=== PATIENT | male | born 1940 | race Caucasian/White ===

== ENCOUNTER 2023-03-03 07:57 | Observation (INO) ==
--- NOTE | 2023-02-04 14:24 | PAT Medication Instructions ---
Medication Instructions Date of Service February 04, 2023 Home Medications Medication Instructions Recorded aspirin 81 mg tablet,delayed 81 mg PO .COMPLEX #30 tabs 07/10/22 release nitroglycerin 0.4 mg sublingual 0.4 mg sublingual Q5M PRN chest 09/25/22 tablet pain #25 tabs multivitamin (Daily Multi-Vitamin tablet) 1 tab PO QAM vitamin B complex (B Complex-Vitamin B12 tablet) 1 tab PO QAM aspirin 81 mg tablet,delayed release 81 mg PO .COMPLEX nitroglycerin 0.4 mg sublingual tablet 0.4 mg sublingual Q5M PRN chest pain atorvastatin 40 mg tablet 40 mg PO QAM metoprolol succinate 25 mg tablet,extended release 24 hr 25 mg PO QAM telmisartan 40 mg tablet 40 mg PO QAM Continue as directed nitroglycerin 0.4 mg sublingual tablet 0.4 mg sublingual Q5M PRN chest pain (if needed) ASK your prescriber and surgeon aspirin 81 mg tablet,delayed release 81 mg PO .COMPLEX DO NOT take the morning of surgery multivitamin (Daily Multi-Vitamin tablet) 1 tab PO QAM vitamin B complex (B Complex-Vitamin B12 tablet) 1 tab PO QAM telmisartan 40 mg tablet 40 mg PO QAM Take morning of surgery With a small sip of water, OTHERWISE NOTHING TO EAT OR DRINK AFTER MIDNIGHT: atorvastatin 40 mg tablet 40 mg PO QAM metoprolol succinate 25 mg tablet,extended release 24 hr 25 mg PO QAM Other Notes If you have any questions please call us at [phone] or [phone] or [phone] or [phone]
--- NOTE | 2023-02-13 12:05 | Anesthesiology Consultation ---
Date of Service February 13, 2023 Assessment & Plan (1) Preoperative cardiovascular examination: Chart Review Chart Review: Acceptable Risk for Surgery (pending cardio ordered stress test ) and Patient seen in Pre Admission Testing - Awaiting cardio ordered stress test (not yet scheduled) -Pt is NOT an Outpatient Joint candidate Per PAT appt on 02/13/23, patient denies any recent travel or large group activities. Pt is vaccinated for Covid. Will leave to surgeon's discretion if preop Covid testing needed. Educated on importance of using Covid precautions one week prior to surgery Last seen by cardio 02/07/23= stable from cardiac standpoint. Able to do usual daily activities including climbing >2 flights of stairs. Despite the presence of presumed new left bundle branch block his exercise tolerance has been stable. BP is well controlled. "As he has a new LBBB further ischemic evaluation is recommended. Patient will be scheduled for a Lexiscan Cardiolite in the near future before his surgery. Provided this nuclear stress test shows no large areas of ischemia or a significant reduction of his LV systolic function -- patient will be an intermediate cardiac risk for his upcoming right reversed TSA. Patient is aware to take his usual dose of Toprol XL 25 mg the morning of surgery with sips of water, and he should hold Telmisartan on the morning of surgery. Additionally, the patient may hold Aspirin for 5-7 days leading up to surgery if required by the surgeon.* Patient seen by PCP 01/29/2023 = seen for preoperative evaluation for scheduled right shoulder replacement. Patient is considered below average risk for serious complications. Average risk for cardiac complication. CAD scheduled to see cardiology for clearance. Above average concern secondary to geriatric outcome recommendations for discharge to nursing or rehab facility, po stoperative delirium, potential new mobility issue. No change of the patient's underlying medications, aspirin can be held 1 week prior to surgery. Teaching & Discussion Pre-Anesthesia Teaching/Discussion Notes: Instructed NPO after midnight before surgery,except medications with 15 cc of water. Medication instructions provided according to the PAT guidelines. History Surgery Operation Date: 02/26/23 12:40 Proposed Procedures p Right Total Shoulder Arthroplasty Reverse - Jono Hoffmann MD Height/Weight Height: 5 ft 6 in Weight: 67.1 kg Allergies Allergy/AdvReac Type Severity Reaction Status Date / Time No Known Drug Allergies Allergy Verified 02/07/23 09:44 Medications Home Medications Medication Instructions Recorded Confirmed Last Taken multivitamin (Daily Multi-Vitamin 1 tab PO QAM 12/25/20 02/07/23 Unknown tablet) vitamin B complex (B 1 tab PO QAM 07/09/21 02/07/23 Unknown Complex-Vitamin B12 tablet) aspirin 81 mg tablet,delayed 81 mg PO .COMPLEX #30 tabs 07/10/22 02/07/23 U nknown release nitroglycerin 0.4 mg sublingual 0.4 mg sublingual Q5M PRN chest 09/25/22 02/07/23 Unknown tablet pain #25 tabs atorvastatin 40 mg tablet 40 mg PO QAM 02/04/23 02/07/23 Unknown metoprolol succinate 25 mg 25 mg PO QAM 02/04/23 02/07/23 Unknown tablet,extended release 24 hr telmisartan 40 mg tablet 40 mg PO QAM 02/04/23 02/07/23 Unknown Past Medical History Medical History (Updated 02/13/23 @ 12:32 by Tanvi Oakes PA-C) Arthritis CAD (coronary artery disease) S/p 3 vessel CABG 1995 CKD (chronic kidney disease) stage 3, GFR 30-59 ml/min H/O nonmelanoma skin cancer History of COVID-19 07/2022>RESOLVED Hx of gout Hyperlipidemia Hypertension LBBB (left bundle branch block) Myocardial infarct 1995 PAD (peripheral artery disease) 2021 EPHRAIM mild/mod Prediabetes Diet controlled Sensorineural hearing loss (SNHL) of both ears Exercise / Class Metabolic Activity II 4-5 Yardwork/Stairs/Walk up hill (one flight of stairs- no chest pain or SOB ) Past Family History Family History Mother Breast cancer Cancer Grandfather (Maternal) Myocardial infarction Uncle Myocardial infarction Father Prostate cancer Brother Hearing loss Sister Hypertension Stroke Denies family history of Ovarian cancer No family history of adverse response to anesthesia No family history of bleeding disorder Allergies Colorectal cancer Asthma Past Surgical History Surgical History History of cataract surgery RT/LEFT History of colonoscopy History of knee replacement (~12/2019) Left History of tooth extraction Hx of tonsillectomy S/P triple vessel bypass (~1995) 1995 AT [facility]>FOLLOWED BY DR. OLMOS Past Anesthesia History No Hx of Anesthesia Complications and No Family Hx of Anesthesia Complications History of PONV No Hx of PONV and History of PONV Social History Smoking Status: Former smoker tobacco type: cigarettes Do You Dip or Chew Tobacco: No Smoking End Date: 1985 Hx Alcohol Use: Yes Alcohol type: beer and wine alcohol intake frequency: 0-2 drinks per day (2-3 drinks/day) Hx Substance Use: No substance use type: does not use Review of Systems Patient denies chest pain, shortness of breath, dyspnea on exertion, reflux, cough, wheezing, palpitations. No hx of seizures, stroke, apnea/snoring. No hx of blood clots or blood transfusions Physical Exam Vital Signs VITALS BP 102/52 (manually) P 67bpm TEMP 97.6 SP02 97% RESP 16 Constitutional no acute distress ENMT Mouth: no TMJ clicking Thyromental Distance: < 3.5 Finger Breadths (3.0) Mallampati Class: II Partial plate on the top Missing bottom molars Neck + limited neck extension Respiratory normal respiratory effort; no respiratory distress Auscultation: lungs clear to auscultation bilaterally; no wheezes Cardiovascular Rate/Rhythm: regular rate and regular rhythm Heart Sounds: no murmur Vessels: no carotid bruit Musculoskeletal Spine: no pain with cervical ROM Extremities: extremities normal to inspection Psychiatric Orientation: alert Lab Results Anesthesia Preop Results Results Anesthesia Widget: WBC 5.55 K/ul (4.8-10.8) 01/29/23 Hgb 13.0 g/dl (14.0-18.0) L 01/29/23 Hct 38.8 % (42.0-52.0) L 01/29/23 Plt 178 K/uL (130-400) 01/29/23 Na 139 mmol/L (136-145) 01/29/23 K 4.1 mmol/L (3.5-5.1) 01/29/23 Cl 103 mmol/L (98-107) 01/29/23 CO2 27 mmol/L (21-32) 01/29/23 BUN 18 mg/dl (6-23) 01/29/23 Creat 1.04 mg/dl (0.6-1.4) 01/29/23 Glucose Level 123 mg/dl (70-99(Fasting)) H 01/29/23 PT 10.9 Seconds (9.0-12.0) 02/13/23 PTT 28.2 Seconds (21.0-31.0) 02/13/23 INR 1.0 (0.9-1.1) 02/13/23 HA1c 5.9 % (4.5-5.6) H 01/29/23 Urine Color Dark Yellow 02/13/23 Urine Appearance Clear (Clear) 02/13/23 Urine pH 5.0 (4.5-7.5) 02/13/23 Urine Specific [place] 1.023 (1.000-1.030) 02/13/23 Urine Protein Negative (Negative) 02/13/23 Urine Glucose (UA) Negative (Negative) 02/13/23 Urine Ketones Trace (Negative) H 02/13/23 Urine Blood Negative (Negative) 02/13/23 Urine Nitrite Negative (Negative) 02/13/23 Urine Bilirubin 1+ (Negative) H 02/13/23 Urine Urobilinogen Negative (Negative) 02/13/23 Urine Leukocyte Esterase Negative (Negative) 02/13/23 Blood Type AB Positive 02/13/23 Antibody Screen NEGATIVE 02/13/23 Testing Electrocardiogram Date: 02/07/23 Findings: + NSR @ (84bpm ) Presumed new LBBB Chest X-Ray Date: 02/13/23 Findings: + NAD Echocardiogram Date: 12/17/19 EF: 62% Normal chamber sizes Mild MR. Mild TR. No pericardial effusion COVID-19 Risk Screen Screening Information COVID-19 Screen Date: 02/13/23 Exposure 21 Days Family/Household +COVID Last 21 Days: No Exposure 10 Days Any COVID Exposure Last 10 Days: No Symptoms Last 10 Days Experienced COVID Sx Last 10 Days: No + COVID 0-90 Days COVID + in Last 0-90 Days: No Risk Plan COVID Risk Plan: No Risk Identified Patient Education COVID Preop Screening Education Complete: Yes
--- NOTE | 2023-03-02 14:09 | History & Physical Report ---
Date of Service March 02, 2023 Assessment & Plan (1) Rotator cuff arthropathy of right shoulder: Plan: Treatment options discussed with patient. He has failed conservative measures and has significant dysfucntion of his right shoulder. He would like to proceed with surgical intervention. Risks, benefits and alternatives to surgery including but not limited to infection, DVT, pain, stiffness, need for revision surgery, damage to blood vessels, damage to nerves, PE, , were discussed with the patient and they wish to proceed. Plan for right reverse total shoulder arthroplasty. Surgery scheduled for 03/03/23 at [facility] with Dr. Hoffmann. All questions answered. Patient will follow up post op. History of Present Illness Chief Complaint: Right shoulder pain Primary Care Provider: Blayne Smith, 82yo male with PMHx significant for HTN, high cholesterol, hx of IL, CAD, CKD, LBBB who presents with ongoing right shoulder pain. Pain is interfering with his daily activities. He has failed conservative measures. He would like to proceed with surgical intervention. Patient denies headaches, sweats, fevers, chills, double vision, blurred vision, cough, sore throat, dysphagia, chest pain, sob, wheezing, n/v/d/c, numbness, tingling, fatigue, urinary symptoms, mood disorders. ROS positive for right shoulder pain and stiffness. Allergies Allergy/AdvReac Type Severity Reaction Status Date / Time No Known Drug Allergies Allergy Verified 02/07/23 09:44 Home Medications Medication Instructions Recorded Confirmed Type multivitamin (Daily Multi-Vitamin 1 tab PO QAM 12/25/20 02/07/23 History tablet) vitamin B complex (B 1 tab PO QAM 07/09/21 02/07/23 History Complex-Vitamin B12 tablet) aspirin 81 mg tablet,delayed 81 mg PO .COMPLEX #30 tabs 07/10/22 02/07/23 Rx release nitroglycerin 0.4 mg sublingual 0.4 mg sublingual Q5M PRN chest 09/25/22 02/07/23 Rx tablet pain #25 tabs atorvastatin 40 mg tablet 40 mg PO QAM 02/04/23 02/07/23 History metoprolol succinate 25 mg 25 mg PO QAM 02/04/23 02/07/23 History tablet,extended release 24 hr telmisartan 40 mg tablet 40 mg PO QAM 02/04/23 02/07/23 History Past Med/Surg History Medical History (Updated 03/02/23 @ 14:07 by Saran Cottrell PA-C) Arthritis CAD (coronary artery disease) S/p 3 vessel CABG 1995 CKD (chronic kidney disease) stage 3, GFR 30-59 ml/min H/O nonmelanoma skin cancer History of COVID-19 07/2022>RESOLVED Hx of gout Hyperlipidemia Hypertension LBBB (left bundle branch block) Myocardial infarct 1995 PAD (peripheral artery disease) 2021 EPHRAIM mild/mod Prediabetes Diet controlled Sensorineural hearing loss (SNHL) of both ears Surgical History History of cataract surgery RT/LEFT History of colonoscopy History of knee replacement (~12/2019) Left History of tooth extraction Hx of tonsillectomy S/P triple vessel bypass (~1995) 1995 AT [place]>FOLLOWED BY DR. OLMOS Family History Mother Breast cancer Cancer Grandfather (Maternal) Myocardial infarction Uncle Myocardial infarction Father Prostate cancer Brother Hearing loss Sister Hypertension Stroke Denies family history of Ovarian cancer No family history of adverse response to anesthesia No family history of bleeding disorder Allergies Colorectal cancer Asthma Social History Smoking Status: Former smoker Tobacco Type: Cigarettes Age Started Using Tobacco: 20; Age Quit Using Tobacco: 44; packs per day: 1; Smoking End Date: 1985; Second Hand Exposure: No; Do You Dip or Chew Tobacco: No; Hx Alcohol Use: Yes Alcohol type: beer and wine Alcohol Intake Frequency: 4 or More x per/Week Hx Substance Use: No Preferred Language: Taiwanese Visual Impairment: Partially Limited Hearing Ability: Use of Hearing Aid Principal Network Engineer Required: No Beliefs That Will Affect Care: None marital status: Current Living Situation: Spouse current occupational status: retired current occupation: Lumber How many Children do You have: 4 How many Children do You have Comment: 4 daughters Feels Safe at Home: Yes Safety Concerns: Feels Safe At This Time Childhood Exposure to Second-Hand Smoke: No Diet: regular caffeine: Yes during the past year weight has: remained stable Dental Care, Regularly: Yes Physical Activity Frequency: Does not Exercise Seatbelt Use: always Sunscreen Use: Yes Assistive Devices: Glasses and Hearing Aid - Bilateral Assistive Devices Comment: UPPER PLATE Review of Systems All systems reviewed & are unremarkable except as noted in HPI & below Physical Exam Constitutional: well developed and well nourished; no acute distress Eyes: PERRL, conjunctivae normal, anicteric sclerae ENMT: external ear and nose normal, oropharynx normal Neck: trachea midline, no thyromegaly Respiratory: normal respiratory effort, lungs clear to auscultation Cardiovascular: RRR, no murmur, no edema Musculoskeletal: Right shoulder: Crepitation with ROM. Tenderness AL acromion. Positive impingement signs, positive belly press and lift off test. Pain with strength testing. ER to 40 degrees, FF to 80 degrees, and abduction to 70 degrees actively. Skin: no rashes, warm and dry Neurologic: patellar DTR's 2+ bilat, sensation intact Psychiatric: A+Ox3, euthymic affect Results & Data Diagnostic Findings Right shoulder radiographs demonstrate proximal migration humeral head and GH joint osteoarthritis consistent with chornic rotator cuff tear. .
[~2023-03-03 07:57] MED LIST: ACETAMINOPHEN 500 MG TAB PO SCH; BUPIVACAINE 0.5 % 5 MG/1 ML PF 10ML VIAL ONE; CeleBREX 200 MG CAP PO SCH; FAMOTIDINE 20 MG TAB PO SCH; GABAPENTIN 300 MG CAP PO SCH; LR 15ML/HR IV SCH; METOCLOPRAMIDE HCL 10 MG TABLET PO SCH; TRANEXAMIC ACID 1,000 MG **IV Intra-op IV SCH; TRANEXAMIC ACID 1,000 MG **IV Pre-op IV SCH; ceFAZolin 2000MG 2,000 MG/15 ML SYR IV SCH; dexAMETHasone 4 MG TAB PO SCH
[2023-03-03] MEDS ORDERED: MIDAZOLAM HCL 1 MG/ML 2ML VIAL ONE (08:14)
[2023-03-03] MEDS ORDERED: ROCURONIUM BROMIDE 10 MG/ML 5 ML VIAL IV ONE ×3 (08:14→11:21)
[2023-03-03] MEDS ORDERED: PROPOFOL IV EMULSION 10 MG/ML 20 ML VIAL IV ONE (08:14)
[2023-03-03] MEDS ORDERED: fentaNYL citrate PF 100 MCG/2 ML VIAL ONE (08:14)
[2023-03-03] MEDS ORDERED: ONDANSETRON INJ 2 MG/ML 2 ML VIAL ONE (08:17)
[2023-03-03] MEDS ORDERED: DEXAMETHASONE SOD INJ 4 MG/ML VIAL ONE (08:17)
[2023-03-03] MEDS ORDERED: fentaNYL citrate PF 100 MCG/2 ML VIAL IV PRN (08:41)
[2023-03-03] MEDS ORDERED: METOCLOPRAMIDE HCL INJ 5 MG/ML 2 ML VIAL IV PRN ×2 (08:41→14:07)
[2023-03-03] MEDS ORDERED: ONDANSETRON INJ 2 MG/ML 2 ML VIAL IV PRN ×2 (08:41→14:07)
[2023-03-03] MEDS ORDERED: ePHEDrine sulfate 50 MG/ML AMP IV PRN (08:41)
[2023-03-03] MEDS ORDERED: ATROPINE SULFATE 0.1 MG/ML 10ML SYR IV PRN (08:41)
[2023-03-03] MEDS ORDERED: HYDROmorphone INJ 1 MG/ML SYRINGE IV PRN (08:41)
--- NOTE | 2023-03-03 09:37 | History & Physical Bridge Note ---
Date of Service March 03, 2023 History & Physical Bridge Note I have examined the patient, reviewed the History & Physical and in the interval since the performance of the History & Physical I have noted the following changes of clinical significance: no changes noted
[2023-03-03] MEDS ORDERED: ePHEDrine sulfate 50 MG/ML SYR ONE (10:32)
[2023-03-03] MEDS ORDERED: GLYCOPYRROLATE 0.2 MG/ML VIAL ONE (11:28)
[2023-03-03] MEDS ORDERED: NEOSTIGMINE METHYLSULFATE 1 MG/ML 10ML VIAL ONE (11:28)
[2023-03-03] MEDS ORDERED: SUGAMMADEX SODIUM 200 MG/2 ML VIAL IV ONE (11:50)
--- NOTE | 2023-03-03 11:56 | Operative Report ---
Post Operative Report Pre & Post Diagnosis Operation Date: 03/03/23 09:55 Pre-Op Diagnosis: Right Shoulder massive irreparable rotator cuff tear with early rotator cuff arthropathy and dislocated biceps tendon Post-Op Diagnosis: Right Shoulder massive irreparable rotator cuff tear with early rotator cuff arthropathy and dislocated biceps tendon I identified the patient and participated in the time-out.: Yes Procedure Operation Date: 03/03/23 09:55 Actual Procedures p Right Total Shoulder Arthroplasty Reverse, Biceps Tenodesis(Right) - Jono Hoffmann MD Surgeon Jono Hoffmann MD Black Top Spreader Machine Operator Saran ALVARES Estimated Blood Loss 100 Findings Consistent with Post-Op Diagnosis Specimens Humeral head cut Drains 2 Hemovac Anesthesia Type General Regional Complications none Disposition Disposition: Recovery Room Indications 82-year-old male with chronic shoulder pain weakness failed conservative management. MRI demonstrates massive rotator cuff tear with dislocated biceps tendon rotator cuff tear involving the subscapularis supraspinatus and infraspinatus tendons. There is rotator cuff retraction and irreparable rotator cuff tear. Description of Procedure The patient was taken to the operating room and anesthetized under regional block and general anesthetic. The patient was positioned on the operating table in a 30 beach chair position with a towel roll under the medial border of the right scapula. The arm was draped free to be able to manipulate the shoulder as needed. The right upper extremity was prepped and draped in usual sterile fashion. Exam demonstrated thin arm with restricted motion. Forward elevation 100 degrees abduction 70 degrees external rotation 40 degrees. An anterior deltopectoral approach was performed. A longitudinal incision was made in the deltopectoral interval. The skin was incised sharply. Subcutaneous flaps were elevated off the fascia. The cephalic vein was dissected out and retracted medially with the pectoralis major. The clavipectoral fascia was divided at the lateral margin of the conjoined tendon and extended up to the CA ligament. The following findings were noted: There was a large subscapularis tendon tear with complete tendon rupture retracted medial to the conjoined tendon. There was only a small amount of inferior capsule still attached to the humerus. The biceps was dislocated anteriorly. The rotator cuff tear extended back through the entire supraspinatus and infraspinatus tendons which were both torn and retracted. Teres minor was still intact. There was some frayed fibers of infraspinatus tendon tissue at the greater tuberosity. There was chronic bursitis.. The upper centimeter of the pectoralis was released for inferior exposure. A self-retaining retractor was placed. The biceps tendon was tenodesed to the pectoralis tendon with #2 FiberWire. The proximal biceps tendon was resected. A subperiosteal dissection was performed along the neck of the humerus as the arm was gradually externally rotated exposing the humeral head. The humeral head findings demonstrated minimal periarticular osteophytes and more erosion on the greater tuberosity with osteophytes that are consistent with impingement on the acromion. The spurs at the greater tuberosity were resected and the torn fibers of the rotator cuff were debrided off the greater tuberosity so that it was a smooth surface. A Fukuda retractor was placed into the joint retracting the humeral head posterior. Glenoid findings demonstrated an anterior glenoid spur and mild arthritic changes with biceps tendinopathy. The labrum and intra- articular biceps tendon was resected. an anterior-inferior and posterior inferior capsular release were performed with electrocautery and a Dawkins elevator on bone. Attention was then taken to the humeral preparation. The cutting guide was placed into the humeral head. It was positioned at 30 of retroversion. Oscillating saw was used to resect the humeral head giving the cut above the level of the posterior rotator cuff insertion site. The humerus was then prepared for the stem. I used the ascend flex stem from [facility]. The sizing broaches were used followed by trial broaches up to a size 4B long which had the appropriate fit and fill. The appropriate sized cut protector was placed. The humerus was then retracted posterior to the glenoid. The glenoid was sized for a 25 mm baseplate. The guide for the baseplate was positioned in a 10 inferior tilt and the central drill hole was made. The reamer for the 25 baseplate was used. Bone had some relatively moderate osteopenia. The central drill was widened for the peg. The 25 mm standard post hydroxyapatite-coated aequalis baseplate was impacted into position. The base plate was transfixed with superior and inferior locking screws and anterior and posterior compression screws with stable fixation. The fan reamer was used for the 36 millimeter g lenoid sphere. After irrigation the 36 mm symmetrical glenoid sphere was impacted onto the baseplate and the security screw was tightened. Attention was taken back to the humerus. The cut protector was removed and the plus or high offset humeral tray trial was assembled to the trial stem rotated appropriately to get bony coverage and then screwed in position. A trial reduction was performed. A +6, 36 mm reversed trial insert gave good stability through full range of motion. Trial was removed and the canal was irrigated with pulsatile saline solution. The final component was assembled. The final component was ascend flex size 4B long PTC stem assembled to the plus or high offset tray with a +6, 36 mm reversed polyethylene insert. This was then impacted into the humerus with a tight press-fit. It was reduced to the glenoid sphere. The pectoralis was repaired with #2 FiberWire [id number] sutures reinforcing the biceps tendon tenodesis. The arm was taken through a range of motion which demonstrated 130 degrees forward flexion 80 degrees AB duction and 60 degrees external rotation. The implant was stable through the range of motion tested. The wound was copiously irrigated. 2 Hemovac drains were placed. The deltopectoral interval was closed with [id number] #1 Vicryl sutures. The subcutaneous tissues were closed with 2-0 Vicryl sutures. The skin was closed with roderick. Sterile dressings were applied and a shoulder immobilizer. Saran ALVARES my physician prosthetic assistant acted as wheelchair van operator first responder throughout the procedure .He performed functions including patient positioning, arm positioning, prepping and draping, soft tissue retraction, instrument management, suture management and performed the subcutaneous and skin closure and will participate in the postoperative care of the patient. I attest to the content of the Intraoperative Record and any orders documented therein. Any exceptions are noted below.
--- NOTE | 2023-03-03 12:46 | Anesthesiology Progress Note ---
Date of Service March 03, 2023 Anesthesia Post Procedure Vital Signs Vital Signs: Temp Pulse Resp BP Pulse Ox O2 Del Method O2 Flow Rate 03/03/23 12:40 36.0 C L 68 13 136/65 93 Room Air 03/03/23 12:30 67 16 130/75 100 Oxymask 4 03/03/23 12:20 72 21 135/56 L 100 Oxymask 6 03/03/23 12:10 69 11 L 128/64 100 Oxymask 6 03/03/23 12:01 35.7 C L 77 25 H 154/77 H 100 Oxymask 6 03/03/23 08:24 36.4 C L 62 20 151/73 H 97 Room Air Pain Intensity Right Shoulder: Pain Intensity: 0 Transfer of Care Handoff Completed per policy Notes Mental Status: alert / awake / arousable and participated in evaluation Nausea / Vomiting: adequately controlled Pain: adequately controlled Airway Patency, RR, SpO2: stable & adequate BP & HR: stable & adequate Hydration State: stable & adequate Anesthetic Complications: no major complications apparent and Pt Satisfied with anesthetic care
--- NOTE | 2023-03-03 13:42 | XRay Report ---
XR shoulder RT min 2V routine CLINICAL HISTORY: Post shoulder surgery TECHNIQUE: 3 views of the right shoulder were obtained. Comparison: Comparison is made to shoulder radiograph 07/09/2022 FINDINGS: Patient is status post shoulder arthroplasty with expected postsurgical changes including soft tissue swelling and subcutaneous emphysema. No periarticular lucency or hardware fracture is seen. IMPRESSION: Expected postoperative appearance status post placement of shoulder arthroplasty. ACT 112: Negative or not required by law. Electronically signed by: Georgi Rachel M.D. 03/03/2023 1:41 PM
[2023-03-03] MEDS ORDERED: MAGNESIUM HYDROXIDE SUSP 30 ML UDC PO PRN (14:07)
[2023-03-03] MEDS ORDERED: NITROGLYCERIN SL 0.4 MG/TAB TAB SL PRN (14:07)
[2023-03-03] MEDS ORDERED: TAMSULOSIN HCL 0.4 MG CAP PO PRN (14:07)
[2023-03-03] MEDS ORDERED: oxyCODONE HCL IR 5 MG TAB (IMMEDIATE RELEASE) PO PRN (14:07)
[2023-03-03] MEDS ORDERED: HYDROmorphone INJ 0.5 MG/0.5 ML SYR IV PRN (14:07)
[2023-03-03] MEDS ORDERED: bisacodyL 10 MG SUPP PR PRN (14:07)
[2023-03-03] MEDS ORDERED: NALOXONE HCL 0.4 MG/1 ML VIAL/CARP IV PRN (14:07)
[2023-03-03] MEDS: ACETAMINOPHEN 500 MG TAB PO SCH ×2 (15:06→22:51)
[2023-03-03] MEDS: SODIUM CHLORIDE 0.9% 1000ML 1,000 ML IV SCH (15:06)
[2023-03-03] MEDS ORDERED: SENNA 8.6 MG TAB PO SCH (21:00)
[2023-03-03] MEDS: ceFAZolin 1000MG 1,000 MG/7.5 ML SYR IV SCH (22:50)
[2023-03-03] MEDS: DOCUSATE SODIUM 100 MG CAP PO SCH (22:51)
[2023-03-04] MEDS: SODIUM CHLORIDE 0.9% 1000ML 1,000 ML IV SCH (01:13)
[2023-03-04] MEDS: ceFAZolin 1000MG 1,000 MG/7.5 ML SYR IV SCH (01:19)
[2023-03-04] MEDS: ACETAMINOPHEN 500 MG TAB PO SCH (05:47)
[2023-03-04] MEDS: DOCUSATE SODIUM 100 MG CAP PO SCH (07:52)
[2023-03-04 08:40] LABS: Basophils # (auto) 0.01 K/uL (0-0.2); Basophils % (auto) 0.1 %; Hematocrit (blood only) 32.2 % (42.0-52.0); Hemoglobin 11.1 g/dl (14.0-18.0); Immature Granulocytes # (auto) 0.06 K/uL (0.01-0.20); Immature Granulocytes % (auto) 0.6 %; Lymphocytes # (auto) 0.52 K/uL (1.2-3.4); Lymphocytes % (auto) 4.9 %; Mean Corpuscular Hemoglobin 31.4 pg (25.0-34.0); Mean Corpuscular Hgb Conc 34.5 g/dL (32.0-36.0); Mean Corpuscular Volume 91.2 fL (80.0-100.0); Mean Platelet Volume 10.1 fL (9.4-12.4); Monocytes # (auto) 0.58 K/uL (0.11-0.59); Monocytes % (auto) 5.5 %; Neutrophils # (auto) 9.43 K/uL (1.40-6.50); Neutrophils % (auto) 88.9 %; Platelet Count 160 K/uL (130-400); RDW Standard Deviation 42.6 fL (36.4-46.3); Red Blood Count 3.53 M/uL (4.70-6.10)
[2023-03-04] MEDS ORDERED: VITAMIN B COMPLEX TAB PO SCH (09:00)
[2023-03-04] MEDS ORDERED: METOPROLOL SUCC 25MG EXT REL TAB PO SCH (09:00)
[2023-03-04] MEDS ORDERED: TELMISARTAN 40 MG TAB PO SCH (09:00)
[2023-03-04] MEDS ORDERED: MULTIVITAMIN TAB PO SCH (09:00)
[2023-03-04] MEDS ORDERED: ASPIRIN 81 MG ECTAB PO SCH (09:00)
[2023-03-04] MEDS ORDERED: ATORVASTATIN 40 MG TAB PO SCH (09:00)
[2023-03-04] MEDS ORDERED: NON-FORMULARY MEDICATION (Multivitamin [Daily Multi-Vitamin] tablet) PO SCH (09:00)
[2023-03-04 09:01] LABS: Calcium 8.7 mg/dl (8.6-10.3); Creatinine Clr Calc Pharmacy 49.6 ml/min; Est GFR (African American) 79.7 ml/min; Est GFR (Non-African American) 68.8 ml/min; Potassium 4.4 mmol/L (3.5-5.1)
--- NOTE | 2023-03-04 09:37 | Orthopedic Progress Note ---
Date of Service March 04, 2023 Assessment & Plan (1) Rotator cuff arthropathy of right shoulder: Plan: Postop day 1 status post right reverse total shoulder arthroplasty PT/OT protocols. Nonweightbearing right upper extremity. DVT prophylaxis-aspirin p.o. daily SCDs Pain management as written. DC planning-patient is planning for outpatient PT after discharge. Plan for discharge to home today. Admission and Anticipated Discharge Date Admission Date: March 03, 2023 Subjective Postop day 1 Patient sitting in his chair at the bedside. No complaints at this time. His block is still working well and his pain is controlled. Physical Exam Physical Exam: Dressings are clean, dry, and intact. Sling is in place. Patient continues to have good results from his nerve block. He is able to move his fingers but press cleaner strength is weak and he continues to have some numbness in all 5 fingers. Cap refills less than 2 seconds. Results & Data Vital Signs (Past 12 Hours) Vital Signs Temp Pulse Resp BP Pulse Ox O2 Del Method 03/04/23 07:37 36.5 C 82 18 102/52 L 95 Room Air 03/04/23 07:10 36.5 C 79 18 105/53 L 94 Room Air 03/04/23 06:08 36.8 C 85 18 114/63 93 Room Air 03/04/23 01:20 36.8 C 89 18 142/72 H 96 Room Air Laboratory Results Laboratory Results WBC 10.60 K/ul (4.8-10.8) 03/04/23 07:56 RBC 3.53 M/uL (4.70-6.10) L 03/04/23 07:56 Hgb 11.1 g/dl (14.0-18.0) L 03/04/23 07:56 Hct 32.2 % (42.0-52.0) L 03/04/23 07:56 MCV 91.2 fL (80.0-100.0) 03/04/23 07:56 MCH 31.4 pg (25.0-34.0) 03/04/23 07:56 MCHC 34.5 g/dL (32.0-36.0) 03/04/23 07:56 RDW Std Deviation 42.6 fL (36.4-46.3) 03/04/23 07:56 RDW Coeff of Kamala 13.0 % (11.5-14.5) 03/04/23 07:56 Plt Count 160 K/uL (130-400) 03/04/23 07:56 MPV 10.1 fL (9.4-12.4) 03/04/23 07:56 Immature Gran % (Auto) 0.6 % 03/04/23 07:56 Neut % (Auto) 88.9 % 03/04/23 07:56 Lymph % (Auto) 4.9 % 03/04/23 07:56 [place] % (Auto) 5.5 % 03/04/23 07:56 Eos % (Auto) 0.0 % 03/04/23 07:56 Baso % (Auto) 0.1 % 03/04/23 07:56 Neut # (Auto) 9.43 K/uL (1.40-6.50) H 03/04/23 07:56 Lymph # (Auto) 0.52 K/uL (1.2-3.4) L 03/04/23 07:56 [place] # (Auto) 0.58 K/uL (0.11-0.59) 03/04/23 07:56 Eos # (Auto) 0.00 K/uL (0-0.50) 03/04/23 07:56 Baso # (Auto) 0.01 K/uL (0-0.2) 03/04/23 07:56 Immature Gran # (Auto) 0.06 K/uL (0.01-0.20) 03/04/23 07:56 Sodium 139 mmol/L (136-145) 03/04/23 07:56 Potassium 4.4 mmol/L (3.5-5.1) 03/04/23 07:56 Chloride 107 mmol/L (98-107) 03/04/23 07:56 Carbon Dioxide 25 mmol/L (21-32) 03/04/23 07:56 Anion Gap 7 (3-11) 03/04/23 07:56 BUN 19 mg/dl (6-23) 03/04/23 07:56 Creatinine 1.00 mg/dl (0.6-1.4) 03/04/23 07:56 Est Cr Clr Drug Dosing 49.6 ml/min 03/04/23 07:56 Est GFR ( Amer) 79.7 ml/min 03/04/23 07:56 Est GFR (Non-Af Amer) 68.8 ml/min 03/04/23 07:56 BUN/Creatinine Ratio 19.0 (10-20) 03/04/23 07:56 Glucose 169 mg/dl (70-99(Fasting)) H 03/04/23 07:56 POC Glucose 110 mg/dl (70-99) H 03/03/23 08:24 Calcium 8.7 mg/dl (8.6-10.3) 03/04/23 07:56 SARS-CoV-2, RNA, NAAT NEGATIVE (NEGATIVE) 03/03/23 08:07 Impressions Shoulder X-Ray 03/03/23 12:04 XR shoulder RT min 2V routine CLINICAL HISTORY: Post shoulder surgery TECHNIQUE: 3 views of the right shoulder were obtained. Comparison: Comparison is made to shoulder radiograph 07/09/2022 FINDINGS: Patient is status post shoulder arthroplasty with expected postsurgical changes including soft tissue swelling and subcutaneous emphysema. No periarticular lucency or hardware fracture is seen. IMPRESSION: Expected postoperative appearance status post placement of shoulder arthroplasty. ACT 112: Negative or not required by law. Electronically signed by: Georgi Rachel M.D. 03/03/2023 1:41 PM
--- NOTE | 2023-03-04 12:48 | Communication Note ---
Date of Service: March 04, 2023 Patient discharged within 24 hours of his admission. Reviewed labs. No concerning findings.
--- NOTE | 2023-03-06 14:51 | Discharge Summary ---
Date of Service March 06, 2023 Admission HPI Per Admitting Provider 82yo male with PMHx significant for HTN, high cholesterol, hx of [place], CAD, CKD, LBBB who presents with ongoing right shoulder pain. Pain is interfering with his daily activities. He has failed conservative measures. He would like to proceed with surgical intervention. Patient denies headaches, sweats, fevers, chills, double vision, blurred vision, cough, sore throat, dysphagia, chest pain, sob, wheezing, n/v/d/c, numbness, tingling, fatigue, urinary symptoms, mood disorders. ROS positive for right shoulder pain and stiffness. Admission Exam Per Admitting Provider Constitutional: well developed and well nourished; no acute distress Eyes: PERRL, conjunctivae normal, anicteric sclerae ENMT: external ear and nose normal, oropharynx normal Neck: trachea midline, no thyromegaly Respiratory: normal respiratory effort, lungs clear to auscultation Cardiovascular: RRR, no murmur, no edema Musculoskeletal: Right shoulder: Crepitation with ROM. Tenderness AL acromion. Positive impingement signs, positive belly press and lift off test. Pain with strength testing. ER to 40 degrees, FF to 80 degrees, and abduction to 70 degrees actively. Skin: no rashes, warm and dry Neurologic: patellar DTR's 2+ bilat, sensation intact Psychiatric: A+Ox3, euthymic affect Principal Diagnosis Right shoulder osteoarthritis Discharge Exam Dressings are clean, dry, and intact. Sling is in place. Patient continues to have good results from his nerve block. He is able to move his fingers but anglesmith strength is weak and he continues to have some numbness in all 5 fingers. Cap refills less than 2 seconds. Constitutional well developed and well nourished; no acute distress Discharge Data Allergies Allergy/AdvReac Type Severity Reaction Status Date / Time No Known Drug Allergies Allergy Verified 03/03/23 08:19 Consultations 02/27/23 16:26 Consult Hospitalist Routine Procedures Performed Operation Date: 03/03/23 09:55 Actual Procedures p Right Total Shoulder Arthroplasty Reverse, Biceps Tenodesis(Right) - Jono Hoffmann MD Ordered Studies 03/03/23 05:00 US - OR guided needle placemen Routine Hospital Course (1) Rotator cuff arthropathy of right shoulder: Postop day 1 status post right reverse total shoulder arthroplasty PT/OT protocols. Nonweightbearing right upper extremity. DVT prophylaxis-aspirin p.o. daily SCDs Pain management as written. DC planning-patient is planning for outpatient PT after discharge. Plan for discharge to home today. Lab Results 03/03/23 03/03/23 03/04/23 Range/Units 08:07 08:24 07:56 WBC 10.60 (4.8-10.8) K/ul RBC 3.53 L (4.70-6.10) M/uL Hgb 11.1 L (14.0-18.0) g/dl Hct 32.2 L (42.0-52.0) % MCV 91.2 (80.0-100.0) fL MCH 31.4 (25.0-34.0) pg MCHC 34.5 (32.0-36.0) g/dL RDW Std Deviation 42.6 (36.4-46.3) fL RDW Coeff of Kamala 13.0 (11.5-14.5) % Plt Count 160 (130-400) K/uL MPV 10.1 (9.4-12.4) fL Immature Gran % (Auto) 0.6 % Neut % (Auto) 88.9 % Lymph % (Auto) 4.9 % [place] % (Auto) 5.5 % Eos % (Auto) 0.0 % Baso % (Auto) 0.1 % Neut # (Auto) 9.43 H (1.40-6.50) K/uL Lymph # (Auto) 0.52 L (1.2-3.4) K/uL [place] # (Auto) 0.58 (0.11-0.59) K/uL Eos # (Auto) 0.00 (0-0.50) K/uL Baso # (Auto) 0.01 (0-0.2) K/uL Immature Gran # (Auto) 0.06 (0.01-0.20) K/uL Sodium (136-145) mmol/L Potassium (3.5-5.1) mmol/L Chloride (98-107) mmol/L Carbon Dioxide (21-32) mmol/L Anion Gap (3-11) BUN (6-23) mg/dl Creatinine (0.6-1.4) mg/dl Est Cr Clr Drug Dosing ml/min Est GFR ( Amer) ml/min Est GFR (Non-Af Amer) ml/min BUN/Creatinine Ratio (10-20) Glucose (70-99(Fasting)) mg/dl POC Glucose 110 H (70-99) mg/dl Calcium (8.6-10.3) mg/dl SARS-CoV-2, RNA, NAAT NEGATIVE (NEGATIVE) 03/04/23 Range/Units 07:56 WBC (4.8-10.8) K/ul RBC (4.70-6.10) M/uL Hgb (14.0-18.0) g/dl Hct (42.0-52.0) % MCV (80.0-100.0) fL MCH (25.0-34.0) pg MCHC (32.0-36.0) g/dL RDW Std Deviation (36.4-46.3) fL RDW Coeff of Kamala (11.5-14.5) % Plt Count (130-400) K/uL MPV (9.4-12.4) fL Immature Gran % (Auto) % Neut % (Auto) % Lymph % (Auto) % [place] % (Auto) % Eos % (Auto) % Baso % (Auto) % Neut # (Auto) (1.40-6.50) K/uL Lymph # (Auto) (1.2-3.4) K/uL [place] # (Auto) (0.11-0.59) K/uL Eos # (Auto) (0-0.50) K/uL Baso # (Auto) (0-0.2) K/uL Immature Gran # (Auto) (0.01-0.20) K/uL Sodium 139 (136-145) mmol/L Potassium 4.4 (3.5-5.1) mmol/L Chloride 107 (98-107) mmol/L Carbon Dioxide 25 (21-32) mmol/L Anion Gap 7 (3-11) BUN 19 (6-23) mg/dl Creatinine 1.00 (0.6-1.4) mg/dl Est Cr Clr Drug Dosing 49.6 ml/min Est GFR ( Amer) 79.7 ml/min Est GFR (Non-Af Amer) 68.8 ml/min BUN/Creatinine Ratio 19.0 (10-20) Glucose 169 H (70-99(Fasting)) mg/dl POC Glucose (70-99) mg/dl Calcium 8.7 (8.6-10.3) mg/dl SARS-CoV-2, RNA, NAAT (NEGATIVE) Total Time Total Time Spent Total Time Spent (In Minutes): 20 Discharge Plan Discharge Items Patient Disposition: Home - Self-Care Reason For Visit: Right Shoulder Primary Osteoarthritis Discharge Diagnosis: Right Shoulder Primary Osteoarthritis Activity: Per Instructions section Weightbearing: Right non-weightbearing Non-emergency contact: Surgeon Call non-emergency contact if: you have any medication questions, your pain is not controlled, your temperature is above 101.5, your wound has increased redness and your wound has increased drainage Follow-up/Referrals: Jono Hoffmann MD [Surgeon] - (Follow up with Dr Hoffmann or his PA in 2 weeks from the day of surgery for your first post operative visit.) Blayne Smith, [Primary Care Provider] - Diet: Regular Addtl Attending Provider Instructions: ACTIVITY RECOMMENDATIONS: SELF CARE INSTRUCTIONS AFTER TOTAL SHOULDER ARTHROPLASTY REVERSE A. You may do daily exercises as taught in physical therapy while in hospital. No lifting with the operative arm. B. You are to wear your sling/immobilizer at all times EXCEPT when performing your daily exercises and for hygiene purposes. C. You may perform dry, daily dressing changes. Please keep your incision covered. You may shower 48 hours after surgery. Do not apply soap or any ointment/lotions directly over incision. Do not soak incision in bath tub/swimming pool. D. You may use ice as needed to operative shoulder. SPECIAL CARE INSTRUCTIONS: VERY IMPORTANT TO READ AND REVIEW A. There are a few signs you need to watch for after you are home. Call [facility] at [phone] if you experience any of the followin. Increased severe shoulder pain. Some pain is expected especially when you exercise. 2. Increased swelling in you shoulder or arm; pain or swelling in either upper extremity. 3. Any fluid drainage from the incision. 4. Shortness of breath or chest pain. B. Please call [facility] at [phone] if you have any questions or concerns about your operation or recovery. C. Call your physician if: 1. Temperature is greater than 101 degrees (F). 2. Pain is not relieved by prescribed pain medications. 3. Increase drainage or redness from incision. 4. Unanswered questions or concerns. FOLLOW UP VISIT: Please call [facility] at [phone] to schedule a follow up appointment with Dr. Hoffmann or his PA in 12-14 days from your surgery date. Stand-Alone Forms: My [facility] [employer], Smoking Cessation Medications and DC Order Prescriptions: New aspirin 81 mg Tablet,Delayed Release (Dr/Ec) 81 mg PO QAM 30 Days Qty: 30 0RF acetaminophen [Tylenol Extra Strength] 500 mg Tablet 1,000 mg PO Q8 14 Days Qty: 84 0RF polyethylene glycol 3350 [Miralax] 17 gram powder in packet 17 g PO DAILY PRN (Reason: constipation) Qty: 5 0RF oxycodone 5 mg tablet 5 mg PO Q4H MDD 6 PRN (Reason: pain) Qty: 30 0RF Continued nitroglycerin 0.4 mg tablet, sublingual 0.4 mg SL Q5M PRN (Reason: chest pain) Qty: 25 3RF multivitamin [Daily Multi-Vitamin] Tablet 1 tab PO QAM vitamin B complex [B Complex-Vitamin B12] Tablet 1 tab PO QAM aspirin 81 mg tablet,delayed release (DR/EC) 81 mg PO .COMPLEX Qty: 30 2RF Rx Instructions: 81 mg orally every Mon, Wed, Fri; atorvastatin 40 mg tablet 40 mg PO QAM telmisartan 40 mg tablet 40 mg PO QAM metoprolol succinate 25 mg tablet extended release 24 hr 25 mg PO QAM Discharge Orders: Discharge Order (Routine); Ordered 03/04/23 Ordered By: Chase Maki/Other Patient Handouts: The Shoulder Joint Admission Data Admit Date/Time: 03/03/23 12:04 Attending Provider: Jono Hoffmann Admit Provider: Jono Hoffmann Primary Care Provider: Blayne Smith Other Providers: Mook Parra Other Interventions: Discharge Summary Assessment (RN) Last Done: 03/04/23 09:46
== END 2023-03-04 10:45 | disposition home or self-care (01) ==
LOC: ASU 07:57 → 3N 07:57